=== PATIENT | female | born 1980 | race Caucasian/White ===

== ENCOUNTER 2024-03-17 17:33 | Emergency (ER) | payer OTHER, SELFPAY ==
--- NOTE | 2024-03-17 17:43 | ED.GENMED ---
ED Provider Triage
<Hannah Cheng, DIVIDING MACHINE OPERATOR - Last Filed: 03/17/24 17:48>
-
Patient seen by provider in Triage?: Seen in Triage
Attestation: A medical screening examination has been initiated by a qualified medical provider. Based on the assessment performed at this time, it has been determined that an emergent medical condition may exist and the patient has been informed
that further medical evaluation and possible additional diagnostic testing may be needed.
HPI: 43-year-old female here for headache past 4 days, mainly on the left side of her head, stomach pains intermittent since yesterday, worse with eating and chest tightness starting earlier this afternoon, intermittent.
GENERAL: Alert , in no apparent distress
EYE: No visual abnormalities.
NECK: Trachea midline
ENT: No visible abnormalities.
LUNGS: No acute respiratory distress
NEUROLOGICAL: Alert and oriented
SKIN: Skin intact. No visible changes.
MUSCULOSKELETAL: Moving extremities normally
PSYCH: Normal and appropriate interaction.
This is a medical evaluation conducted in person to initiate diagnostic evaluation and provide initial therapeutics. Please see further documentation by the treating clinician.
History of Present Illness
<Hannah Cheng, DIVIDING MACHINE OPERATOR - Last Filed: 03/17/24 17:48>
General
Chief Complaint: Chest Pain
Time Seen by Provider: 03/17/24 22:52
<Miguel Burk DO - Last Filed: 03/18/24 00:18>
History of Present Illness
History of Present Illness:
TIME OF INITIAL ENCOUNTER: 11 PM
HPI: 43-year-old female here for headache past 4 days, mainly on the left side of her head, stomach pains intermittent since yesterday, worse with eating and chest tightness starting earlier this afternoon, intermittent. She states that the
abdominal pain has improved compared to yesterday as today she did not eat much at all however she tried to stay hydrated. She has a history of a gastric sleeve placed in 2019 at [facility].
EXAM:
GENERAL: Well appearing in no distress
HEENT: Moist oral mucosa
CARDIOVASCULAR: No murmurs, normal heart rate, regular rhythm, No chest wall tenderness
PULMONARY: No respiratory distress, breath sounds are clear and equal
ABDOMEN: Soft with no peritoneal signs, no tenderness, elevated BMI
NEUROLOGIC: Excellent strength all extremities, no coordination deficits
PSYCHIATRIC: Appropriate mental status, normal insight and judgement
EXTREMITIES: Nontender, no edema, moves all extremities equally
SKIN: No rash, no lesions
NUMBER AND COMPLEXITY OF PROBLEMS ADDRESSED AT THE ENCOUNTER
� Chronic conditions affecting care: Asthma, iron deficiency anemia, ADHD, anxiety/depression, previous gastric sleeve
� Acute Exacerbation and/or Progression of Chronic Illness: This is an acute problem
� Differential Diagnosis includes: Viral syndrome, nonspecific headache, tension headache, solid caffeine withdrawal headache, type of headache, bowel obstruction, mesenteric adenitis
AMOUNT AND/OR COMPLEXITY OF DATA TO BE REVIEWED AND ANALYZED
� I performed an independent evaluation of and my interpretation is:
EKG: Sinus 93, normal axis, no acute ST abnormality
CT: CT suggest mild mesenteric panniculitis, a few small bowel loops are slightly distended
X-rays:
Laboratory Studies: White count 6.2, hemoglobin 12.8, chemistries unremarkable, troponin less than 0.012, hCG negative
Other:
� Review of other/old records: I reviewed records, the patient was seen here in [facility] 23 related to anemia
� Clinical information was obtained by an independent historian: None needed
� Prescriptions/Medications Considered but not given:
� Further testing considered but not performed: Considered CT of the brain however the patient has a nonfocal neurologic examination
RISK OF COMPLICATIONS AND/OR MORBIDITY OR MORTALITY OF PATIENT MANAGEMENT
� Social determinants of health affecting care: Lives at home
� Discussion with other providers:
� Escalation of care including admission/observation vs risk of discharge considered: I reviewed CT report with patient. She states the pain is currently minimal and currently has no nausea. Gave Reglan with Benadryl along with
Toradol due to the headache.
ANY OTHER UPDATES:
12:15 AM: The patient does report improvement regarding the headache after meds given. I advised her to try to continue to limit solid p.o. intake over the next day.
Past History
<Hannah Cheng, DIVIDING MACHINE OPERATOR - Last Filed: 03/17/24 17:48>
Past History
ED Past Medical History: Asthma
ED Past Surgical History: None
Social History
Tobacco: Non-smoker
Alcohol: None
Drug: None
Personal:
Living: with family
Employment: Employed
Family History
Family History: Negative Early CAD or Sudden
Phy Exam
<Miguel Burk, DO - Last Filed: 03/18/24 00:18>
Physical Exam
Physical Exam:
See HPI
Scores
<Miguel Burk, DO - Last Filed: 03/18/24 00:18>
Heart Score for Chest Pain Patients
STEMI patient?: Not applicable
Course
<Hannah Cheng, DIVIDING MACHINE OPERATOR - Last Filed: 03/17/24 17:48>
Orders/Labs/Results
Orders:
Orders
03/17/24 17:34
ECG [Electrocardiogram (*1)] Urgent
Reason for Study: Chest Pain
EKG- Treatment ONCE
03/17/24 17:45
Test Result ONCE
03/17/24 17:47
CT Abd/Pel (IV only)-[facility] only Urgent
Comment:
Reason For Exam: left side upper abdominal pain
03/17/24 17:48
Electrocardiogram (*1) Urgent
Reason for Study: Chest Pain
EKG- Treatment ONCE
03/17/24 18:01
Complete Blood Count/With Diff Urgent
Comprehensive Metabolic Panel Urgent
HCG, Serum Qualitative Screen Urgent
Troponin I Urgent
03/17/24 23:36
Ketorolac [Toradol] 15 mg IV NOW STA
03/17/24 23:37
Diphenhydramine [Benadryl] 25 mg IV NOW STA
Metoclopramide [Reglan] 10 mg IV NOW STA
Abnormal Lab Results
03/17/24
18:01
RDW 15.4 H %
(11.5-14.5)
MPV 11.2 H fL
(7.4-10.4)
Absolute Lymphs (auto) 1.0 L 10^3/uL
(1.2-3.4)
Neutrophils % 77.6 H %
(42.2-75.2)
Lymphocytes % 15.4 L %
(20.5-51.1)
03/17/24 18:01
03/17/24 18:01
Vital Signs
Initial and Last Documented VS:
Initial Vital Signs
Temp Pulse Resp BP Pulse Ox
37.4 C 105 16 137/92 98
03/17/24 17:44 03/17/24 17:44 03/17/24 17:44 03/17/24 17:44 03/17/24 17:44
Last Documented Vital Signs
Temp Pulse Resp BP Pulse Ox
37.4 C 85 21 113/78 96
03/17/24 17:44 03/17/24 23:45 03/17/24 23:45 03/17/24 23:00 03/17/24 22:17
Bolivarlt;Miguel Burk DO - Last Filed: 03/18/24 00:18>
Orders/Labs/Results
Orders:
Orders
03/17/24 17:34
ECG [Electrocardiogram (*1)] Urgent
Reason for Study: Chest Pain
EKG- Treatment ONCE
03/17/24 17:45
Test Result ONCE
03/17/24 17:47
CT Abd/Pel (IV only)-[facility] only Urgent
Comment:
Reason For Exam: left side upper abdominal pain
03/17/24 17:48
Electrocardiogram (*1) Urgent
Reason for Study: Chest Pain
EKG- Treatment ONCE
03/17/24 18:01
Complete Blood Count/With Diff Urgent
Comprehensive Metabolic Panel Urgent
HCG, Serum Qualitative Screen Urgent
Troponin I Urgent
03/17/24 23:36
Ketorolac [Toradol] 15 mg IV NOW STA
03/17/24 23:37
Diphenhydramine [Benadryl] 25 mg IV NOW STA
Metoclopramide [Reglan] 10 mg IV NOW STA
Abnormal Lab Results
03/17/24
18:01
RDW 15.4 H %
(11.5-14.5)
MPV 11.2 H fL
(7.4-10.4)
Absolute Lymphs (auto) 1.0 L 10^3/uL
(1.2-3.4)
Neutrophils % 77.6 H %
(42.2-75.2)
Lymphocytes % 15.4 L %
(20.5-51.1)
03/17/24 18:01
03/17/24 18:01
Vital Signs
Initial and Last Documented VS:
Initial Vital Signs
Temp Pulse Resp BP Pulse Ox
37.4 C 105 16 137/92 98
03/17/24 17:44 03/17/24 17:44 03/17/24 17:44 03/17/24 17:44 03/17/24 17:44
Last Documented Vital Signs
Temp Pulse Resp BP Pulse Ox
37.4 C 85 21 113/78 96
03/17/24 17:44 03/17/24 23:45 03/17/24 23:45 03/17/24 23:00 03/17/24 22:17
<Miguel Burk DO - Last Filed: 03/18/24 00:18>
*Critical Care Note
Total Time (30-74mins, 75-104mins- exclusive of procedures): Not Applicable
ED Attending Note
<Hannah Cheng DIVIDING MACHINE OPERATOR - Last Filed: 03/17/24 17:48>
-
Portions of this chart may have been created with voice recognition software.� Occasional wrong word or��sound alike� substitutions may have occurred due to the inherent limitations of voice recognition software.
Discharge Plan
Departure
Patient Disposition: Home (Routine Discharge)
Date of Disposition: 03/18/24
Time of Disposition: 00:13
Patient with high blood pressure during this ER visit?: Yes
Discharge Problem:
Abdominal pain
Instructions: Headache, Adult ED, Abdominal Pain, BLOOD PRESSURE
Prescriptions:
No Action
montelukast [Singulair] 10 mg Tablet
10 mg PO DAILY
albuterol 90 mcg/actuation Aerosol
90 mcg INHALATION PRN PRN (Reason: sob)
Referrals:
Lui Vega MD [Family Provider] -
Interventions
Interventions:
*Risk Screen - Suicide Last Done: 03/17/24 17:44
*General Assessment Last Done: 03/17/24 22:17
*Neglect/Abuse Screening Last Done: 03/17/24 17:44
*ED COVID-19 Vaccine History Last Done: 03/17/24 22:17
ED- Cardiac Assessment Last Done: 03/17/24 22:17
Discharge Date and Time
Print Language: LATVIAN
[2024-03-17 17:44] VITALS: BP 137/92
[2024-03-17 18:18] LABS: % Basophils 0.2 % (0-2); % Immature Granulocytes 0.5 % (0-0.5); % Lymphocytes 15.4 % (20.5-51.1); % Monocytes 6.3 % (1.7-9.3); % Neutrophils 77.6 % (42.2-75.2); Absolute Monocytes 0.4 10^3/uL (0.1-0.6); Absolute Neutrophils 4.8 10^3/uL (1.4-6.5); Hematocrit 38.2 % (37.0-47.0); Hemoglobin 12.8 g/dL (12.0-16.0); Mean Corp Hgb Conc. 33.5 g/dL (33.0-37.0); Mean Corpuscular Hgb 27.6 pg (27.0-31.0); Mean Corpuscular Volume 82.5 fL (81.0-99.0); Mean Platelet Volume 11.2 fL (7.4-10.4); Nucleated Red Blood Cells % 0 %; Platelet Count 207 10^3/uL (130-400); Red Blood Cell Count 4.63 10^6/uL (4.20-5.40); Red Cell Dist. Width 15.4 % (11.5-14.5); White Blood Cell Count 6.2 10^3/uL (4.8-10.8)
[2024-03-17 18:36] LABS: HCG, Serum Qualitative Screen Negative
[2024-03-17 18:40] LABS: ALT (SGPT) 15 U/L (0-35); AST (SGOT) 26 U/L (14-36); Albumin 4.2 g/dl (3.5-5.0); Alkaline Phosphatase 61 U/L (38-126); Blood Urea Nitrogen 12 mg/dl (7-17); Calcium 8.4 mg/dl (8.4-10.2); Carbon Dioxide 24 mmol/L (22-30); Chloride 102 mmol/L (98-107); Glucose 97 mg/dl (70-99); Potassium 3.9 mmol/L (3.5-5.1); Sodium 137 mmol/L (135-145); Total Bilirubin 0.6 mg/dl (0.2-1.3); Total Protein 6.8 g/dl (6.3-8.2); eGFR > 60.00
[2024-03-17 18:46] LABS: Troponin I < 0.012 ng/ml
[2024-03-17 21:04] VITALS: BP 126/95
[2024-03-17 22:17] VITALS: BMI 43.6
[2024-03-17 22:21] VITALS: BP 131/72
[2024-03-17 23:00] VITALS: BP 113/78
[2024-03-17] MEDS: TORADOL 15 MG IV (23:49)
[2024-03-17] MEDS: REGLAN 10 MG IV (23:49)
[2024-03-17] MEDS: BENADRYL 25 MG IV (23:50)
== END 2024-03-18 00:48 | disposition home or self-care (01) ==
LOC: EMR 17:33
PROVIDERS: Registered Nurse; EMERGENCY PHYSICIAN Emergency Medicine; FAMILY PHYSICIAN Family Medicine
DX: R10.9 Unspecified abdominal pain (principal); R51.9 Headache, unspecified; R07.89 Other chest pain; J45.909 Unspecified asthma, uncomplicated; Z98.84 Bariatric surgery status
CPT/HCPCS: 99284; 96374; 96375; 74177; 80053; 84484; 84703; 85025; 93005; Q9967